=== PATIENT | male | born 2000 | race Caucasian/White ===

== ENCOUNTER → 2022-10-19 | Outpatient (REF) | payer OTHER ==
[2022-10-19 10:31] LABS: SEMEN APPEARANCE OPAQUE (OPAQUE); SEMEN VOLUME 1.9 ml (2.0-5.0)
[2022-10-19 10:32] LABS: SEMEN VISCOSITY LIQUID (LIQUID); SEMEN pH 8.5 (7.0-8.0); SPERM CONCENTRATION 60.5 M/ml (>=15.0); WBC CONCENTRATION <=1 M/ml (<=1 M/ml)
== END ==
LOC: M LAB REF 10:05
PROVIDERS: ATTEND Nurse Practitioner Family
DX: Z98.52 Vasectomy status (principal)

== ENCOUNTER 2023-11-08 19:45 | Emergency (ER) | payer OTHER ==
[~2023-11-08] VITALS: Ht 170.2 cm; Wt 99.8 kg
[~2023-11-08 19:45] MED LIST: CEPH500C PO
[2023-11-08 21:48] VITALS: BP 134/59; TEMP 98.1; O2SAT 97
== END 2023-11-08 23:25 | disposition left against medical advice (07) ==
LOC: M ED 19:45
DX: Z53.21 Procedure and treatment not carried out due to patient leaving prior to being seen by health care provider (principal)

== ENCOUNTER 2024-04-29 12:42 | Inpatient (IN) | payer OTHER ==
[~2024-04-29] VITALS: Ht 170.2 cm; Wt 100.0 kg
[2024-04-29 13:32] LABS: HEMATOCRIT 43.5 % (42.0-52.0); HEMOGLOBIN 14.4 g/dl (13.5-17.5); MEAN CORPUSCULAR HEMOGLOBIN 28.9 pg (27.0-33.0); MEAN CORPUSCULAR HGB CONC 33.1 g/dl (32.0-36.5); MEAN CORPUSCULAR VOLUME 87.3 fl (80.0-96.0); PLATELET COUNT, AUTOMATED 357 10^3/uL (150-450); RED BLOOD COUNT 4.98 10^6/uL (4.30-6.10); WHITE BLOOD COUNT 8.1 10^3/uL (4.0-10.0)
[2024-04-29 13:54] LABS: ETHYL ALCOHOL (ETHANOL) < 0.003 % (0.000-0.010)
[2024-04-29 13:56] LABS: ALBUMIN 4.8 G/DL (3.2-5.2); ALKALINE PHOSPHATASE 79 U/L (40-129); ALT/SGPT 40 U/L (7.0-40); AST/SGOT 18 U/L (<34); BILIRUBIN,DIRECT 0.2 MG/DL (<0.4); BILIRUBIN,TOTAL 0.6 MG/DL (0.3-1.2); BLOOD UREA NITROGEN 16 MG/DL (9-23); CALCIUM LEVEL 10.1 MG/DL (8.5-10.1); CARBON DIOXIDE LEVEL 27 MMOL/L (20-31); CHLORIDE LEVEL 105 MMOL/L (98-107); CREATININE FOR GFR 0.82 MG/DL (0.70-1.30); GLOMERULAR FILTRATION RATE > 60.0 (>60); GLUCOSE, FASTING 94 MG/DL (60-100); POTASSIUM SERUM 4.1 MMOL/L (3.5-5.1); SALICYLATE LEVEL < 3.0 MG/DL (<30); SODIUM LEVEL 140 MMOL/L (136-145); TOTAL PROTEIN 7.8 G/DL (5.7-8.2)
[2024-04-29 13:58] LABS: THYROID STIMULATING HORMONE 2.003 uIU/ML (0.55-4.78)
[2024-04-29 14:04] LABS: AMPHETAMINES LEVEL URINE NEGATIVE (NEGATIVE); BARBITURATES URINE NEGATIVE (NEGATIVE); BENZODIAZEPINES URINE NEGATIVE (NEGATIVE); CANNABINOIDS URINE NEGATIVE (NEGATIVE); COCAINE METABOLITE URINE NEGATIVE (NEGATIVE); METHADONE URINE NEGATIVE (NEGATIVE); OPIATES URINE NEGATIVE (NEGATIVE); PHENCYCLIDINE URINE NEGATIVE (NEGATIVE)
[2024-04-29] MEDS ORDERED: ACETAMINOPHEN 325 MG TAB PO PRN (14:30)
[2024-04-29] MEDS ORDERED: diphenhydrAMINE 25MG CAP PO PRN (14:30)
[2024-04-29] MEDS ORDERED: MOM 30ML SUSPENSION UDC PO PRN (14:30)
[2024-04-29] MEDS ORDERED: traZODone 50 MG TAB PO PRN (14:30)
[2024-04-29] MEDS ORDERED: MAALOX 30 ML SUSP *UDC PO PRN (14:30)
[2024-04-29] MEDS ORDERED: IBUPROFEN 400MG TAB PO PRN (14:30)
[2024-04-29] MEDS ORDERED: HOME MED LIST COMPLETE! XX SCH (14:55)
[2024-04-29 15:28] VITALS: BP 128/74; TEMP 97.9; O2SAT 100
[2024-04-30 06:42] VITALS: BP 123/75; TEMP 97.9; O2SAT 100
[2024-04-30] MEDS: buPROPion **XL** TABLET 150MG (WELLBUTRIN XL) PO SCH (11:31)
[2024-04-30 18:43] VITALS: BP 115/64; TEMP 98.8; O2SAT 98
[2024-04-30] MEDS: MIRTAZAPINE 15 MG TAB PO SCH (20:07)
[2024-05-01 06:28] VITALS: BP 146/94; TEMP 98.3; O2SAT 98
[2024-05-01] MEDS ORDERED: BUPR150T12 PO ×2 (08:30→14:17)
[2024-05-01] MEDS ORDERED: MIRT-10 PO (08:30)
[2024-05-01] MEDS ORDERED: MIRT1TAB15 PO (14:17)
== END 2024-05-01 11:25 | disposition home or self-care (01) | DRG 881 ==
LOC: M ED 12:42 → M ED INP 14:29 → M PSY 15:25
PROVIDERS: ADMIT Psychiatry & Neurology Psychiatry; ATTEND Psychiatry & Neurology Psychiatry
DX: F32.A Depression, unspecified (principal); F32.1 Major depressive disorder, single episode, moderate; R45.851 Suicidal ideations; F41.9 Anxiety disorder, unspecified; F10.10 Alcohol abuse, uncomplicated; E66.9 Obesity, unspecified; Z89.022 Acquired absence of left finger(s); Z68.34 Body mass index [BMI] 34.0-34.9, adult

== ENCOUNTER → 2024-06-17 | Outpatient (REF) | payer OTHER ==
[~2024-06-17] MED LIST changes: +BUPR150T12 PO; +MIRT-10 PO; +MIRT1TAB15 PO
== END ==
LOC: M LAB REF 13:01
PROVIDERS: ATTEND Physician Assistant
DX: R19.7 Diarrhea, unspecified (principal)